=== PATIENT | male | born 1955 | race Caucasian/White ===

== ENCOUNTER 2017-04-30 12:16 | Inpatient (IN) | payer BC ==
[2017-04-30] MEDS ORDERED: ASPIRIN EC 325 MG TAB PO ONE ×2 (12:37→13:24)
[2017-04-30] MEDS ORDERED: NS 1,000 ML IV ONE (12:37)
[2017-04-30] MEDS ORDERED: DIAZEPAM 5 MG TAB PO ONE (12:37)
[2017-04-30] MEDS ORDERED: FAMOTIDINE 20 MG TAB PO ONE (12:37)
[2017-04-30] MEDS ORDERED: diphenhydrAMINE 25 MG CAP PO ONE ×2 (12:37→13:24)
--- NOTE | 2017-04-30 13:09 | CPEKG ---
Heart Rate: 48 RR Interval: 1250 P-R Interval: 248 QRSD Interval: 110 QT Interval: 440 QTC Interval: 394 P Reader: 7 QRS Reader: 43 T Wave Reader: 6 EKG Severity - ABNORMAL ECG - EKG Impression: SINUS BRADYCARDIA EKG Impression: FIRST DEGREE AV BLOCK EKG Impression: NONSPECIFIC INTRAVENTRICULAR CONDUCTION DELAY Electronically Signed By: Cecilio Becerril 30-Apr-2017 15:08:48
[2017-04-30] MEDS ORDERED: FAMOTIDINE 20 MG TAB ONE (13:24)
[2017-04-30] MEDS ORDERED: DIAZEPAM 5 MG TAB ONE (13:24)
[2017-04-30 13:27] LABS: % IMMATURE GRANULYOCYTES 0.3 % (0.0-1.1); ABSOLUTE IMMATURE GRANULOCYTES 0.02 10^3/uL (0.00-0.10); ADD DIFF? NO; ADD MORPH? NO; ADD SCAN? NO; ATYPICAL LYMPHOCYTE FLAG 0 (0-99); FRAGMENT RBC FLAG 0 (0-99); HEMATOCRIT 46.3 % (40.0-51.0); HEMOGLOBIN 15.2 g/dL (13.7-17.5); LEFT SHIFT FLG 0 (0-99); LIPEMIA HEMOLYSIS FLAG 80 (0-99); MEAN CELL HEMOGLOBIN 24.7 pg (27.9-34.1); MEAN CELL HEMOGLOBIN CONCENTR. 32.8 g/dL (32.4-36.7); MEAN CELL VOLUME 75.2 fL (81.5-99.8); MEAN PLATELET VOLUME 9.6 fL (8.7-11.7); PLATELET CLUMPS FLAG 10 (0-99); PLATELET COUNT 225 10^3/uL (150-400); RED BLOOD CELL COUNT 6.16 10^6/uL (4.40-6.38); RED CELL DISTRIBUTION WIDTH 15.4 % (11.5-15.2)
[2017-04-30 13:41] LABS: ANION GAP 11 mEq/L (8-16); CALCIUM 9.7 mg/dL (8.5-10.4); CARBON DIOXIDE 23 mEq/l (22-31); CHLORIDE 106 mEq/L (97-110); CHOLESTEROL 150 mg/dL (140-220); GLOMERULAR FILTRATION RATE > 60; GLUCOSE 88 mg/dL (70-100); HIGH DENSITY LIPOPROTEIN 30 mg/dL (40-65); LDL/HDL RATIO 2.93 RATIO (1.00-3.64); LOW DENSITY LIPOPROTEIN 88 mg/dL (80-100); NON-HIGH DENSITY LIPOPROTEIN 120 mg/dL (90-129); POTASSIUM 4.5 mEq/L (3.5-5.2); SODIUM 140 mEq/L (134-144); TRIGLYCERIDE 161 mg/dL (40-150); VERY LOW DENSITY LIPOPROTEINS 32 mg/dL (8-25)
[2017-04-30 13:45] LABS: INR 1.01 (0.83-1.16); PROTIME(PATIENT) 13.2 SEC (12.0-15.0)
[2017-04-30] MEDS ORDERED: fentaNYL 100 MCG/2 ML INJ ONE (14:49)
[2017-04-30] MEDS ORDERED: LIDOCAINE 1% 300 MG/30 ML SDV ONE (14:49)
[2017-04-30] MEDS ORDERED: VERAPAMIL 5 MG/2 ML VIAL ONE (14:50)
[2017-04-30] MEDS ORDERED: IOPAMIDOL (ISOVUE-370) 150 ML BTL IV ONE (14:50)
[2017-04-30] MEDS ORDERED: MIDAZOLAM 2 MG/2 ML VIAL ONE ×2 (14:50→15:26)
[2017-04-30] MEDS ORDERED: HEPARIN 10,000 UNIT/10 ML MDV ONE (14:50)
[2017-04-30] MEDS ORDERED: ATROPINE SULFATE 1 MG/10 ML SYR IVP PRN (16:08)
[2017-04-30] MEDS ORDERED: NITROGLYCERIN 0.4 MG BTL SL PRN (16:08)
[2017-04-30] MEDS ORDERED: ONDANSETRON 4 MG/2 ML VIAL IVP PRN (16:08)
[2017-04-30] MEDS ORDERED: NS 1,000 ML IV SCH (16:30)
--- NOTE | 2017-04-30 16:41 | PDDXCAT ---
Diagnostic Cath Note - . 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 LAD: Mid-LAD 90%; distal LAD 60-70%. LCX: Codominant circumflex with diffuse 40-50% disease in mid-vessel; 80-90% lesion jeopardizing small, terminal inferior wall branch. RCA: Codominant RCA with 80-90% mid-vessel lesion. Ramus: Moderate to large ramus intermedius with diffuse proximal disease up to 60-70%. LVEF: 60% Wall motion: Normal Complications: None Estimated blood loss: <50ml Assessment: 1) Normal LV systolic function. 2) Multivessel CAD as described above. Plan: In speaking with the patient's following his procedure, it appears that he has been having CCS class IV angina. Given the multivessel and severe nature of his CAD, he will be admitted and CT surgery will be consulted tomorrow morning for consideration of coronary bypass graft surgery. The patient will definitely require greater than 2 midnights for care of his cardiac condition.
[2017-04-30] MEDS ORDERED: LISINOPRIL 5 MG TAB PO SCH (17:45)
[2017-04-30] MEDS ORDERED: LISINOPRIL 5 MG TAB PO ONE (17:45)
[2017-04-30] MEDS: METOPROLOL TARTRATE 25 MG TAB PO SCH (21:26)
[2017-05-01] MEDS: LEVOTHYROXINE 200 MCG TAB PO SCH (06:16)
[2017-05-01] MEDS: ASPIRIN EC 81 MG TAB PO SCH (08:06)
[2017-05-01] MEDS: ALLOPURINOL 300 MG TAB PO SCH (08:06)
[2017-05-01] MEDS: MULTIVITAMINS 1 EACH TAB PO SCH (08:06)
[2017-05-01] MEDS ORDERED: LISINOPRIL 10 MG TAB PO SCH (09:00)
[2017-05-01] MEDS ORDERED: MUPIROCIN 2% 22 GM OINT NS ONE (10:34)
[2017-05-01] MEDS: METOPROLOL TARTRATE 25 MG TAB PO SCH ×2 (10:45→23:43)
[2017-05-01 12:27] LABS: HEMOGLOBIN A1C 6.3 % (4.0-6.0)
--- NOTE | 2017-05-01 12:50 | ECHO ---
[id number] + + [address] : : [place] [address] : : [phone] + + Adult Echocardiographic Report + --+ :Name: Aura HERNÁNDEZluc Date: 05/01/2017 08:05 AM : : Hospital Admission Number: [id number] Location: 2 12: :: 1955 Gender: Male Height: 73 in : :Age: 61 yrs Race: WH Weight: 207 lb : :Reason For Study: Multivessel CAD : : BSA: 2.2 meters2 : + --+ MMode/2D Measurements \T\ Calculations IVSd: 0.96 cm LVIDd: 5.1 cm FS: 38.9 % Ao root diam: LVPWd: 0.87 cm LVIDs: 3.1 cm EDV(Teich): 3.4 cm 126.0 ml LA dimension: ESV(Teich): 4.5 cm 39.1 ml EF(Teich): 69.0 % LVLd ap4: 8.1 cm SV(MOD-sp4): EDV(MOD-sp4): 49.0 ml 80.0 ml LVLs ap4: 7.0 cm ESV(MOD-sp4): 31.0 ml EF(MOD-sp4): 61.3 % Normal Measurement Values: + + :LVIDd (3.5-5.7cm) IVSd (0.6-1.1cm) LVPWd (0.6-1.1cm) Aortic Root (2.0-3.7cm)Left Atrium (1.5-4.0cm): :LV Vol(d) (76-115ml) LV Vol(s) (29-48ml) Ejec Fraction (50-65%)PV Aldo (0.6- 1.2m/s) TV Aldo (0.4-1.0m/s) : :MV E Aldo (0.8-1.0m/s)MV A Aldo (0.3-1.0m/s)LVOT Aldo (0.7-1.2m/s) Asc Ao Aldo ( 0.9-1.8m/s) : + + Doppler Measurements \T\ Calculations MV E max aldo: 87.4 cm/sec Ao V2 max: 112.7 cm/sec TR max aldo: 202.2 cm/sec MV A max aldo: 48.4 cm/sec Ao max P.1 mmHg TR max P.4 mmHg MV E/A: 1.8 RAP systole: 5.0 mmHg RVSP(TR): 21.4 mmHg Left Ventricle The left ventricle is normal in size and function. There is normal left ventricular wall thickness. Left ventricular systolic function is normal. Ejection Fraction = 60-65%. There is Doppler evidence for diastolic dysfunction. No regional wall motion abnormalities noted. Right Ventricle The right ventricle is normal in size and function. Atria The left atrial size is normal. Right atrial size is normal. Mitral Valve The mitral valve is normal in structure and function. There is trace mitral regurgitation. Tricuspid Valve Normal tricuspid valve. There is mild tricuspid regurgitation. Right ventricular systolic pressure is normal. Aortic Valve The aortic valve is trileaflet. The aortic valve opens well. There is no aortic stenosis. There is no aortic insufficiency. Pulmonic Valve The pulmonic valve is not well visualized. There is no pulmonic valvular regurgitation. Great Vessels The aortic root is normal size. Pericardium/Pleural There is no pericardial effusion. Conclusion A complete two-dimensional transthoracic echocardiogram was performed (2D, M-mode, Doppler and color flow Doppler). (1) Left ventricular systolic ejection fraction was normal (60-65%) - normal wall motion (2) No left ventricular hypertrophy (3) Diastolic dysfunction was present (4) Normal right ventricular size and function (5) Normal atrial dimensions (6) Physiologic mitral regurgitation (7) Trileaflet aortic valve without sclerosis or insufficiency (8) Mild tricuspid regurgitation - RVSP was within normal limits (9) Poor visualization of the pulmonic valve (10) No comparison echocardiograms Final Reading Physician: Dhaval Stover signed on 05/01/2017 12:49 PM Ordering Physician: Chet Do Performed By: Raya Hope RDCS
--- NOTE | 2017-05-01 13:44 | PDCARPN ---
Cardiology Progress Note Assessment/Plan: See my recent office note which serves as the history and physical for this Hospital encounter. It has been placed on the physical chart for information purposes. 61-year-old male recently presented for evaluation with classic CCS class III to IV angina. Has risk factors of hypertension (treated) and mild hyperlipidemia (untreated). Recent pharmacologic nuclear stress test suggested LAD territory ischemia. Cardiac catheterization performed yesterday demonstrated preserved LV systolic function and multivessel CAD. Patient was presented at our weekly cardiology case conference this morning. Recommendation is for coronary bypass surgery. Patient and family met with Dr. Jorge earlier today. Surgery is planned for tomorrow. Echocardiogram demonstrates normal left ventricular systolic function and no valvular heart disease. Carotid ultrasound negative for any significant atherosclerotic plaque. Will need aggressive secondary prevention going forward. Will start low-dose atorvastatin. 05/01/17 13:40 Subjective: No complaints. Reviewed/Discussed With: family Objective: Vital Signs (8 Hrs) Temp Pulse Resp BP Pulse Ox 05/01/17 11:53 36.9 C 54 L 12 152/84 H 95 05/01/17 10:45 48 L 05/01/17 07:21 36.8 C 48 L 17 158/88 H 95 Intake/Output (24 Hrs) 04/30/17 05/01/17 05/02/17 05:59 05:59 05:59 Intake Total 1320 1000 Output Total 800 Balance 520 1000 Intake: Oral (ml) 720 IV Intake (ml) 600 1000 Output: Urine (ml) 800 Urinal 800 Other: Weight 94.3 kg Result Diagrams: 04/30/17 13:00 04/30/17 13:00 - Physical Exam Constitutional: WDWN, healthy appearing, no apparent distress Eyes: anicteric sclera Ears, Nose, Mouth, Throat: moist mucous membranes Cardiovascular: regular rate and rhythm, no murmurs, no rubs, no gallops Respiratory: clear to auscultate bilat Gastrointestinal: normoactive bowel sounds, no tenderness, no masses Skin: no rashes, no edema Neurologic: AAOx3 Psychiatric: not anxious ICD10 Worksheet Patient Problems: Problems Problem Status Onset Coronary artery disease Acute Hyperlipidemia Acute Hypertension Acute - ICD10 Problem Qualifiers (1) Coronary artery disease Qualifiers: Coronary Disease-Associated Artery/Lesion type: C [place] vs. transplanted heart: N Associated angina: A (2) Hypertension Qualifiers: Hypertension type: H (3) Hyperlipidemia Qualifiers: Hyperlipidemia type: H
--- NOTE | 2017-05-01 16:13 | PDGENHP ---
<Mikael Santos - Last Filed: 05/01/17 16:32> History and Physical - Chief Complaint abnormal stress test, unstable angina, CAD - History of Present Illness 61M with positive stress test and unstable angina s/p C which revealed severe three-vessel disease. Case discussed at cardiology conference this morning with ultimate plan for surgical revascularization on 05/02/[address] Jorge. The patient currently denies chest pain or SOB. History Information - Allergies/Home Medication List Allergies/Adverse Reactions: No Known Allergies Allergy (Unverified 04/30/17 12:37) Home Medications: Allopurinol [Allopurinol 300 MG (RX)] 300 mg PO DAILY 04/30/17 [Last Taken 04/30] Aspirin [Aspirin EC] 81 mg PO DAILY 04/30/17 [Last Taken 04/30/17] Herbals/Supplements -Info Only 1 ea PO DAILY 04/30/17 [Last Taken Unknown] Levothyroxine [Synthroid 200 mcg (*)] 200 mcg PO DAILY06 04/30/17 [Last Taken ] Lisinopril [Zestril 10 mg (*)] 10 mg PO DAILY 04/30/17 [Last Taken 04/30/17] Multivitamins [Multivitamin (*)] 1 each PO DAILY 04/30/17 [Last Taken 04/30/17] Nadolol [Corgard] 80 mg PO DAILY 04/30/17 [Last Taken 04/30/17] I have personally reviewed and updated: family history, medical history, surgical history - Past Medical History diabetes type 2 (pre-diabetic), hypertension, hyperlipidemia Additional medical history: gout, hypothyroidism - Surgical History Reports: no pertinent surgical hx - Family History Positive for: non-pertinent - Social History Smoking Status: Never smoked Review of Systems Constitutional: Reports: no symptoms EENMT: Reports: no symptoms Cardiac: Reports: no symptoms Respiratory: Reports: no symptoms Gastrointestinal: Reports: no symptoms Genitourinary: Reports: no symptoms Neurological: Reports: no symptoms Physical Exam Temp Pulse Resp BP Pulse Ox 36.9 C 54 L 12 152/84 H 95 05/01/17 11:53 05/01/17 11:53 05/01/17 11:53 05/01/17 11:53 05/01/17 11:53 Constitutional: no apparent distress, appears nourished, not in pain Eyes: anicteric sclera Ears, Nose, Mouth, Throat: hearing normal Cardiovascular: no murmur, rub, or gallop, bradycardia, No irregularly irregular , No JVD Respiratory: no respiratory distress, clear to auscultation Gastrointestinal: soft, non-tender abdomen Skin: warm, normal color Musculoskeletal: full muscle strength Neurologic: AAOx3, sensation intact bilaterally Psychiatric: interacting appropriately, not anxious, not encephalopathic, thought process linear Lab Data & Imaging Review 04/30/17 13:00 04/30/17 13:00 WBC 7.42 10^3/uL (3.80-9.50) 04/30/17 13:00 RBC 6.16 10^6/uL (4.40-6.38) 04/30/17 13:00 Hgb 15.2 g/dL (13.7-17.5) 04/30/17 13:00 Hct 46.3 % (40.0-51.0) 04/30/17 13:00 MCV 75.2 fL (81.5-99.8) L 04/30/17 13:00 MCH 24.7 pg (27.9-34.1) L 04/30/17 13:00 MCHC 32.8 g/dL (32.4-36.7) 04/30/17 13:00 RDW 15.4 % (11.5-15.2) H 04/30/17 13:00 Plt Count 225 10^3/uL (150-400) 04/30/17 13:00 MPV 9.6 fL (8.7-11.7) 04/30/17 13:00 Neut % (Auto) 43.5 % (39.3-74.2) 04/30/17 13:00 Lymph % (Auto) 34.2 % (15.0-45.0) 04/30/17 13:00 [place] % (Auto) 10.4 % (4.5-13.0) 04/30/17 13:00 Eos % (Auto) 9.7 % (0.6-7.6) H 04/30/17 13:00 Baso % (Auto) 1.9 % (0.3-1.7) H 04/30/17 13:00 Nucleat RBC Rel Count 0.0 % (0.0-0.2) 04/30/17 13:00 Absolute Neuts (auto) 3.23 10^3/uL (1.70-6.50) 04/30/17 13:00 Absolute Lymphs (auto) 2.54 10^3/uL (1.00-3.00) 04/30/17 13:00 Absolute Monos (auto) 0.77 10^3/uL (0.30-0.80) 04/30/17 13:00 Absolute Eos (auto) 0.72 10^3/uL (0.03-0.40) H 04/30/17 13:00 Absolute Basos (auto) 0.14 10^3/uL (0.02-0.10) H 04/30/17 13:00 Absolute Nucleated RBC 0.00 10^3/uL (0-0.01) 04/30/17 13:00 Immature Gran % 0.3 % (0.0-1.1) 04/30/17 13:00 Immature Gran # 0.02 10^3/uL (0.00-0.10) 04/30/17 13:00 PT 13.2 SEC (12.0-15.0) 04/30/17 13:00 INR 1.01 (0.83-1.16) 04/30/17 13:00 Sodium 140 mEq/L (134-144) 04/30/17 13:00 Potassium 4.5 mEq/L (3.5-5.2) 04/30/17 13:00 Chloride 106 mEq/L (97-110) 04/30/17 13:00 Carbon Dioxide 23 mEq/l (22-31) 04/30/17 13:00 Anion Gap 11 mEq/L (8-16) 04/30/17 13:00 BUN 19 mg/dL (7-23) 04/30/17 13:00 Creatinine 1.0 mg/dL (0.7-1.3) 04/30/17 13:00 Estimated GFR > 60 04/30/17 13:00 Glucose 88 mg/dL (70-100) 04/30/17 13:00 Hemoglobin A1c 6.3 % (4.0-6.0) H 05/01/17 11:38 Estim Average Glucose 134 mg/dL (68-126) H 05/01/17 11:38 Calcium 9.7 mg/dL (8.5-10.4) 04/30/17 13:00 Magnesium 2.0 mg/dL (1.6-2.3) 04/30/17 13:00 Triglycerides 161 mg/dL (40-150) H 04/30/17 13:00 Cholesterol 150 mg/dL (140-220) 04/30/17 13:00 Cholesterol Risk Factr 1.0 (0.2-1.0) 04/30/17 13:00 LDL Cholesterol, Calc 88 mg/dL (80-100) 04/30/17 13:00 LDL Risk Factor 1.0 (0.2-1.0) 04/30/17 13:00 VLDL Cholesterol 32 mg/dL (8-25) H 04/30/17 13:00 Non-HDL Cholesterol 120 mg/dL (90-129) 04/30/17 13:00 HDL Cholesterol 30 mg/dL (40-65) L 04/30/17 13:00 LDL/HDL Ratio 2.93 RATIO (1.00-3.64) 04/30/17 13:00 Cholesterol/HDL Ratio 5.00 RATIO (1.00-4.97) H 04/30/17 13:00 Patient ABO/Rh O POSITIVE 05/01/17 11:38 Antibody Screen NEGATIVE 05/01/17 11:38 Visualized and Interpreted Chest x-ray results: Yes Chest X-Ray results: normal Visualized and Interpreted imaging results: Yes Interpretation: Carotid U/S: no significant stenosis Visualized and Interpreted EKG results: Yes EKG additional interpertation: Sinus bradycardia, 1st degree AV block Assessment & Plan Assessment: Severe 3-vessel CAD Plan: CABG 05/02/17 at 7:[address] Jorge. Consents to be obtained in morning. Pre- op orders entered. <Mele Jorge O - Last Filed: 05/02/17 11:41> Physical Exam Temp Pulse Resp BP Pulse Ox 36.6 C 53 L 16 155/80 H 95 05/02/17 04:00 05/02/17 04:00 05/02/17 04:00 05/02/17 04:00 05/02/17 04:00 Lab Data & Imaging Review 04/30/17 13:00 04/30/17 13:00 WBC 7.42 10^3/uL (3.80-9.50) 04/30/17 13:00 RBC 6.16 10^6/uL (4.40-6.38) 04/30/17 13:00 Hgb 15.2 g/dL (13.7-17.5) 04/30/17 13:00 Hct 46.3 % (40.0-51.0) 04/30/17 13:00 MCV 75.2 fL (81.5-99.8) L 04/30/17 13:00 MCH 24.7 pg (27.9-34.1) L 04/30/17 13:00 MCHC 32.8 g/dL (32.4-36.7) 04/30/17 13:00 RDW 15.4 % (11.5-15.2) H 04/30/17 13:00 Plt Count 225 10^3/uL (150-400) 04/30/17 13:00 MPV 9.6 fL (8.7-11.7) 04/30/17 13:00 Neut % (Auto) 43.5 % (39.3-74.2) 04/30/17 13:00 Lymph % (Auto) 34.2 % (15.0-45.0) 04/30/17 13:00 [place] % (Auto) 10.4 % (4.5-13.0) 04/30/17 13:00 Eos % (Auto) 9.7 % (0.6-7.6) H 04/30/17 13:00 Baso % (Auto) 1.9 % (0.3-1.7) H 04/30/17 13:00 Nucleat RBC Rel Count 0.0 % (0.0-0.2) 04/30/17 13:00 Absolute Neuts (auto) 3.23 10^3/uL (1.70-6.50) 04/30/17 13:00 Absolute Lymphs (auto) 2.54 10^3/uL (1.00-3.00) 04/30/17 13:00 Absolute Monos (auto) 0.77 10^3/uL (0.30-0.80) 04/30/17 13:00 Absolute Eos (auto) 0.72 10^3/uL (0.03-0.40) H 04/30/17 13:00 Absolute Basos (auto) 0.14 10^3/uL (0.02-0.10) H 04/30/17 13:00 Absolute Nucleated RBC 0.00 10^3/uL (0-0.01) 04/30/17 13:00 Immature Gran % 0.3 % (0.0-1.1) 04/30/17 13:00 Immature Gran # 0.02 10^3/uL (0.00-0.10) 04/30/17 13:00 PT 13.2 SEC (12.0-15.0) 04/30/17 13:00 INR 1.01 (0.83-1.16) 04/30/17 13:00 Sodium 140 mEq/L (134-144) 04/30/17 13:00 Potassium 4.5 mEq/L (3.5-5.2) 04/30/17 13:00 Chloride 106 mEq/L (97-110) 04/30/17 13:00 Carbon Dioxide 23 mEq/l (22-31) 04/30/17 13:00 Anion Gap 11 mEq/L (8-16) 04/30/17 13:00 BUN 19 mg/dL (7-23) 04/30/17 13:00 Creatinine 1.0 mg/dL (0.7-1.3) 04/30/17 13:00 Estimated GFR > 60 04/30/17 13:00 Glucose 88 mg/dL (70-100) 04/30/17 13:00 Hemoglobin A1c 6.3 % (4.0-6.0) H 05/01/17 11:38 Estim Average Glucose 134 mg/dL (68-126) H 05/01/17 11:38 Calcium 9.7 mg/dL (8.5-10.4) 04/30/17 13:00 Magnesium 2.0 mg/dL (1.6-2.3) 04/30/17 13:00 Triglycerides 161 mg/dL (40-150) H 04/30/17 13:00 Cholesterol 150 mg/dL (140-220) 04/30/17 13:00 Cholesterol Risk Factr 1.0 (0.2-1.0) 04/30/17 13:00 LDL Cholesterol, Calc 88 mg/dL (80-100) 04/30/17 13:00 LDL Risk Factor 1.0 (0.2-1.0) 04/30/17 13:00 VLDL Cholesterol 32 mg/dL (8-25) H 04/30/17 13:00 Non-HDL Cholesterol 120 mg/dL (90-129) 04/30/17 13:00 HDL Cholesterol 30 mg/dL (40-65) L 04/30/17 13:00 LDL/HDL Ratio 2.93 RATIO (1.00-3.64) 04/30/17 13:00 Cholesterol/HDL Ratio 5.00 RATIO (1.00-4.97) H 04/30/17 13:00 Patient ABO/Rh O POSITIVE 05/01/17 11:38 Antibody Screen NEGATIVE 05/01/17 11:38 Assessment & Plan Assessment: Coronary artery disease (Acute) Hyperlipidemia (Acute) Hypertension (Acute) CTS Seen with estephania and Rafael Santos 05/01 am and again with Anirudh Shaikh 05/02 am. d/w Dr Do at [facility] 05/01. Class IV angina with severe 3vd on cath. Plan CABG this admit. Options risks course outcomes indications approaches reviewed in detailx2.
[2017-05-01] MEDS ORDERED: CHLORHEXIDINE GLUC HIBICLENS 118 ML BTL TP SCH (21:00)
[2017-05-01] MEDS: MUPIROCIN 2% 22 GM OINT NS SCH (23:44)
[2017-05-02] MEDS ORDERED: PHENYLEPHRINE HCL 50 MG in NS 250 ML IV ONE (06:00)
[2017-05-02] MEDS ORDERED: NOREPINEPHRINE BITARTRATE 16 MG in NS 250 ML IV ONE (06:00)
[2017-05-02] MEDS ORDERED: INSULIN REGULAR HUMAN 100 UNIT in NS 100 ML IV ONE (06:00)
[2017-05-02] MEDS ORDERED: CITRATE DEXTROSE SOLN 500 ML BAG MISC ONE (06:00)
[2017-05-02] MEDS ORDERED: MANNITOL 25% 12.5 GM/50 ML VIAL IV ONE (06:00)
[2017-05-02] MEDS ORDERED: SODIUM BICARBONATE 20 MEQ, LIDOCAINE 1% 10 ML in NORMOSOL-R 1,000 ML MISC ONE (06:00)
[2017-05-02] MEDS ORDERED: ceFAZolin 2 GM/DEXTROSE 100 ML IV ONE (06:00)
[2017-05-02] MEDS ORDERED: niCARdipine/NACL 200 ML IV SCH (06:00)
[2017-05-02] MEDS ORDERED: VERAPAMIL 5 MG, NITROGLYCERIN 2.5 MG, HEPARIN 500 UNIT, SODIUM BICARBONATE 0.2 MEQ in L... MISC ONE (06:00)
[2017-05-02] MEDS ORDERED: PAPAVERINE HCL 60 MG in NS 100 ML IV ONE (06:00)
[2017-05-02] MEDS ORDERED: AMINOCAPROIC ACID 5 GM/20 ML VIAL IV ONE (06:00)
[2017-05-02] MEDS ORDERED: PROTAMINE SULFATE 50 MG/5 ML VIAL IVP ONE (06:32)
[2017-05-02] MEDS ORDERED: ALBUMIN 5% 250 ML BOTTLE IV ONE ×2 (06:33→11:02)
[2017-05-02] MEDS ORDERED: CALCIUM CHLORIDE 1 GM/10 ML INJ ONE ×2 (06:33→07:25)
[2017-05-02] MEDS ORDERED: MILRINONE/DEXTROSE/100 ML BAG IV ONE (06:33)
[2017-05-02] MEDS ORDERED: AMINOCAPROIC ACID 5 GM/20 ML VIAL ONE (06:34)
[2017-05-02] MEDS ORDERED: POTASSIUM Cl (KCl) 20 MEQ/50 ML BAG IV ONE (06:34)
[2017-05-02] MEDS ORDERED: AMIODARONE HCL 150 MG/3 ML VIAL ONE (06:34)
[2017-05-02] MEDS ORDERED: DOPamine/DEXTROSE/250 ML BAG IV ONE (06:34)
[2017-05-02] MEDS ORDERED: niCARdipine/NACL/200 ML BAG IV ONE (06:34)
[2017-05-02] MEDS ORDERED: CITRATE DEXTROSE SOLN 500 ML BAG ONE (06:34)
[2017-05-02] MEDS ORDERED: NA BICARBONATE 50 MEQ/50 ML VIAL ONE (06:34)
[2017-05-02] MEDS ORDERED: LIDOCAINE 2% 100 MG/5 ML SYR ONE ×2 (06:34→07:25)
[2017-05-02] MEDS ORDERED: methylPREDNISolone SOD SUCC 1 GM/8 ML VIAL ONE (06:35)
[2017-05-02] MEDS ORDERED: MAGNESIUM SULFATE 1 GM/2 ML VIAL ONE (06:35)
[2017-05-02] MEDS ORDERED: HEPARIN 10,000 UNIT/10 ML MDV ONE (06:35)
[2017-05-02] MEDS ORDERED: ADENOSINE 6 MG/2 ML VIAL ONE (06:35)
[2017-05-02] MEDS ORDERED: ceFAZolin 1 GM VIAL ONE (06:36)
[2017-05-02] MEDS ORDERED: ENALAPRILAT DIHYDRATE 1.25 MG/ML VIAL IVP PRN (07:00)
[2017-05-02] MEDS ORDERED: VANCOMYCIN 1 GM VIAL ONE (07:08)
[2017-05-02] MEDS ORDERED: PAPAVERINE HCL 60 MG/2 ML SDV ONE (07:10)
[2017-05-02] MEDS ORDERED: MIDAZOLAM 2 MG/2 ML VIAL ONE ×3 (07:15→07:24)
[2017-05-02] MEDS ORDERED: fentaNYL 100 MCG/2 ML INJ ONE ×4 (07:24→10:17)
[2017-05-02] MEDS ORDERED: REMIFENTANIL HCL 1 MG VIAL ONE (07:24)
[2017-05-02] MEDS ORDERED: ROCURONIUM 100 MG/10 ML VIAL ONE (07:25)
[2017-05-02] MEDS ORDERED: DEXAMETHASONE 4 MG/ML VIAL ONE (07:25)
[2017-05-02] MEDS ORDERED: ROCURONIUM 50 MG/5 ML VIAL ONE (07:25)
[2017-05-02] MEDS ORDERED: epHEDrine SULFATE 10 MG/ML SYR ONE ×2 (07:25→08:15)
[2017-05-02] MEDS ORDERED: PHENYLEPHRINE HCL 100 MCG/ML SYR ONE (07:25)
[2017-05-02] MEDS ORDERED: PROPOFOL/EMULSION 500 MG/50 ML BOTTLE IV ONE (07:25)
[2017-05-02] MEDS ORDERED: LIDOCAINE HCL 160 MG/4 ML LTA KIT TP ONE (07:28)
[2017-05-02] MEDS ORDERED: NITROGLYCERIN/DEXTROSE 250 ML IV SCH ×2 (07:30→12:00)
[2017-05-02] MEDS ORDERED: SURGIFLO MATRIX KIT WITH THROMBIN TP ONE (08:30)
[2017-05-02] MEDS ORDERED: ONDANSETRON 4 MG/2 ML VIAL ONE (08:58)
[2017-05-02] MEDS ORDERED: ATORVASTATIN CALCIUM 20 MG TAB PO SCH (09:00)
[2017-05-02] MEDS ORDERED: PROPOFOL 200 MG/20 ML VIAL ONE (10:17)
[2017-05-02] MEDS ORDERED: NITROGLYCERIN/D5W 50 MG/250 ML BOTTLE IV ONE (10:22)
[2017-05-02] MEDS ORDERED: RANITIDINE 50 MG/2 ML VIAL ONE (10:41)
[2017-05-02] MEDS ORDERED: HYDROCORTISONE 100 MG/2 ML VIAL ONE (10:48)
[2017-05-02] MEDS ORDERED: MAGNESIUM SULF 2 GM/WATER 50 ML BAG IV ONE (11:02)
[2017-05-02] MEDS: LEVOTHYROXINE 200 MCG TAB PO SCH (11:30)
[2017-05-02] MEDS: MUPIROCIN 2% 22 GM OINT NS SCH ×2 (11:33→20:24)
[2017-05-02] MEDS: MULTIVITAMINS 1 EACH TAB PO SCH (11:33)
[2017-05-02] MEDS ORDERED: MEPERIDINE 25 MG/ML SYR IVP PRN (11:48)
[2017-05-02] MEDS ORDERED: POTASSIUM Cl (KCl) 50 ML IV PRN (11:48)
[2017-05-02] MEDS ORDERED: BISACODYL 10 MG SUPP PR PRN (11:48)
[2017-05-02] MEDS ORDERED: SODIUM CL NASAL 45 ML BTL EACHNARE PRN (11:48)
[2017-05-02] MEDS ORDERED: MAGNESIUM SULF 2 GM/WATER 50 ML IV ONE (11:48)
[2017-05-02] MEDS ORDERED: D50W 25 GM/50 ML SYR IVP PRN (11:48)
[2017-05-02] MEDS ORDERED: ACETAMINOPHEN 650 MG SUPP PR PRN (11:48)
[2017-05-02] MEDS ORDERED: MAGNESIUM HYDROXIDE 30 ML UDCUP PO PRN (11:48)
[2017-05-02] MEDS ORDERED: PANTOPRAZOLE SODIUM 40 MG in NS 100 ML IV ONE (11:48)
[2017-05-02] MEDS ORDERED: ONDANSETRON DISINTEGRATING 4 MG TAB PO PRN (11:48)
[2017-05-02] MEDS ORDERED: ALBUMIN 5% 250 ML IV PRN (11:48)
[2017-05-02] MEDS ORDERED: CEPACOL LOZENGE PO PRN (11:48)
[2017-05-02] MEDS ORDERED: POLYETHYLENE GLYCOL 3350 17 GM PKT PO PRN (11:48)
[2017-05-02] MEDS ORDERED: METOCLOPRAMIDE 10 MG/2 ML VIAL IVP PRN (11:48)
[2017-05-02] MEDS ORDERED: LACTULOSE 20 GM/30 ML UDCUP PO PRN (11:48)
[2017-05-02] MEDS ORDERED: NS 1,000 ML IV SCH (12:00)
[2017-05-02 12:34] LABS: CALCULATED OXYGEN SATURATION 95 % (92-95)
--- NOTE | 2017-05-02 12:59 | CPEKG ---
Heart Rate: 66 RR Interval: 909 P-R Interval: 208 QRSD Interval: 106 QT Interval: 444 QTC Interval: 466 P [place]: 62 QRS [place]: 61 T Wave [place]: 26 EKG Severity - OTHERWISE NORMAL ECG - EKG Impression: SINUS RHYTHM EKG Impression: LOW VOLTAGE IN FRONTAL LEADS Electronically Signed By: Cecilio Becerril 02-May-2017 16:40:47
[2017-05-02] MEDS: ceFAZolin 2 GM/DEXTROSE 100 ML IV SCH ×2 (13:18→21:09)
[2017-05-02] MEDS: INSULIN REGULAR HUMAN 100 UNIT in NS 100 ML IV SCH ×2 (14:00→18:06)
[2017-05-02 15:35] LABS: BASE EXCESS -6.3 mEq/L (-2.5-2.5); BICARBONATE 20 mEq/L (22-26); MEASURED OXYGEN SATURATION 96 % (92-95); TCO2 21 mEq/L (23-27)
[2017-05-02 15:37] LABS: PCO2 41 mmHg (34-38); PO2 95 mmHg (65-75)
[2017-05-02 15:38] LABS: CPAP YES; END TIDAL CO2 29; O2 CONCENTRATIION 40 % (0-100); P/F RATIO 238 RATIO; PATIENT RATE 31
[2017-05-02 15:39] LABS: PRESSURE SUPPORT 7
[2017-05-02] MEDS ORDERED: CLOPIDOGREL BISULFATE 75 MG TAB PO ONE (16:00)
[2017-05-02] MEDS ORDERED: ASPIRIN EC 81 MG TAB PO ONE (16:00)
--- NOTE | 2017-05-02 17:20 | GCON ---
[f rep st] CONSULTATION PULMONARY CRITICAL CARE CONSULTATION DATE OF CONSULTATION: 05/02/2017 REASON FOR CONSULTATION: Intensive care unit evaluation and medical management following open heart surgery. HISTORY: The patient is a 61-year-old gentleman with a history of coronary artery disease. He pres ented with unstable angina. Catheterization revealed severe 3-vessel disease. He was seen yesterda y by Cardiovascular Surgery and taken to the OR today. By report, he had a 4 vessel coronary artery bypass grafting done without complications. He was returned to the intensive care unit on the vent ilator and has been weaning per protocol. He has not required blood or blood products. He did rece fariba his own blood via CellSaver. Vital signs postoperatively are stable. He is not requiring press ors. He is on low-dose nitroglycerin by drip to prevent vasospasm. He is on insulin drip per martina col. PAST MEDICAL HISTORY: Remarkable for systemic hypertension, hyperlipidemia, hypothyroidism on repla cement, gout, and early type 2 diabetes not requiring medications. OUTPATIENT MEDICATIONS: Included lisinopril, Synthroid, aspirin, Corgard, and allopurinol. PAST SURGICAL HISTORY: Negative. SOCIAL HISTORY: The patient is with a supportive family. He is a never smoker. Significan t alcohol is negative. FAMILY HISTORY: Unobtainable at this time. REVIEW OF SYSTEMS: Unobtainable, negative by report per chart review. PHYSICAL EXAMINATION: GENERAL: Reveals a gentleman who is sedated postoperatively on the ventilato r starting to wake up. VITAL SIGNS: Blood pressure is approximately 120/60, heart rate 70 with sin us rhythm on the monitor. There appears to be a first-degree heart block. Respiratory rate is 14 o n the ventilator. He is on 40% FiO2. CVP is 9. HEENT: Remarkable for the endotracheal tube. Pup ils appear equal. CHEST: Postoperative. Breath sounds are present bilaterally, decreased at the b ases. No significant rales or rhonchi are appreciated. There is no obvious bleeding. Mediastinal tubes are in place with bloody drainage. CellSaver has been given. ABDOMEN: Soft. Bowel sounds a re diminished postoperatively. A Haas catheter is in place with good urine output. NEUROLOGIC: E xamination is difficult to assess. He moves all extremities. LABORATORY: Postop hematocrit is 43. White blood cell count preoperatively was 7.4, with a hematoc rit of 46. Platelets were normal. PT was normal. Arterial blood gas on CPAP shows a pH of 7.30, p CO2 of 41, pO2 of 95 on 40%. Basic metabolic panel is within normal limits. Glucoses have ranged b etween approximately 140 and 240. Hemoglobin A1c is 6.3. ASSESSMENT: 1. Acute postoperative respiratory insufficiency. The patient is being weaned. Initially pCO2 was high, and increased respiratory rate was required. He is waking up. He is now maintaining appropr iate oxygenation on 40% and ventilation. PCO2 is slightly high with a slightly low pH but acceptabl e for extubation at this point. Chest x-ray shows left lower lobe atelectasis./retrocardiac density , not unexpected for a postop CABG. This will be followed. 2. Coronary artery disease, status post coronary artery bypass grafting. Hemodynamics and hematocr it are stable. 3. History of early prediabetes. Glucoses are elevated postoperatively. He is on an insulin drip per protocol. 4. History of other medical problems as noted in the HPI including systemic hypertension, hyperlipi demia, gout. PLAN AND RECOMMENDATIONS: The patient will be extubated. Respiratory status will be followed post extubation. Current intravenous medications will be continued including insulin by drip, IV nitrogl ycerin, etc. Tomorrow, when taking orals without problems, his usual home medications as well as or al postoperative medications will be given. Laboratory and chest x-ray will be followed. Further plans and recommendations will be made based on his progress over the next 12-24 hours. /[id number]/MODL
[2017-05-02] MEDS: fentaNYL 100 MCG/2 ML INJ IVP PRN ×2 (18:34→22:32)
[2017-05-02] MEDS: HYDROCODONE/APAP 5/325 TAB PO PRN (20:20)
[2017-05-02] MEDS: CHLORHEXIDINE GLUCONATE 15 ML UDL PO SCH (20:25)
[2017-05-02] MEDS ORDERED: FAMOTIDINE 20 MG/NACL 50 ML IV SCH (21:00)
[2017-05-02 21:54] LABS: HEMATOCRIT 41.7 % (40.0-51.0); HEMOGLOBIN 13.3 g/dL (13.7-17.5); MEAN CELL HEMOGLOBIN 24.8 pg (27.9-34.1); MEAN CELL HEMOGLOBIN CONCENTR. 31.9 g/dL (32.4-36.7); MEAN CELL VOLUME 77.8 fL (81.5-99.8); RED BLOOD CELL COUNT 5.36 10^6/uL (4.40-6.38); RED CELL DISTRIBUTION WIDTH 15.4 % (11.5-15.2)
[2017-05-03] MEDS: HYDROCODONE/APAP 5/325 TAB PO PRN ×2 (02:27→06:21)
[2017-05-03] MEDS: ceFAZolin 2 GM/DEXTROSE 100 ML IV SCH ×3 (05:14→21:20)
[2017-05-03 05:56] LABS: % IMMATURE GRANULYOCYTES 0.5 % (0.0-1.1); ABSOLUTE IMMATURE GRANULOCYTES 0.08 10^3/uL (0.00-0.10); ADD DIFF? NO; ADD MORPH? NO; ADD SCAN? NO; ATYPICAL LYMPHOCYTE FLAG 10 (0-99); FRAGMENT RBC FLAG 0 (0-99); HEMATOCRIT 40.3 % (40.0-51.0); HEMOGLOBIN 12.8 g/dL (13.7-17.5); LEFT SHIFT FLG 20 (0-99); LIPEMIA HEMOLYSIS FLAG 80 (0-99); MEAN CELL HEMOGLOBIN 24.7 pg (27.9-34.1); MEAN CELL HEMOGLOBIN CONCENTR. 31.8 g/dL (32.4-36.7); MEAN CELL VOLUME 77.6 fL (81.5-99.8); PLATELET CLUMPS FLAG 0 (0-99); PLATELET COUNT 203 10^3/uL (150-400); RED BLOOD CELL COUNT 5.19 10^6/uL (4.40-6.38); RED CELL DISTRIBUTION WIDTH 15.6 % (11.5-15.2)
[2017-05-03 06:15] LABS: ANION GAP 6 mEq/L (8-16); CALCIUM 8.1 mg/dL (8.5-10.4); CARBON DIOXIDE 21 mEq/l (22-31); CHLORIDE 109 mEq/L (97-110); CREATININE 0.9 mg/dL (0.7-1.3); GLOMERULAR FILTRATION RATE > 60; GLUCOSE 129 mg/dL (70-100); POTASSIUM 4.5 mEq/L (3.5-5.2); SODIUM 136 mEq/L (134-144)
[2017-05-03] MEDS ORDERED: D10W 250 ML PRN HYPOGLYCEMIA IV (08:30)
--- NOTE | 2017-05-03 08:35 | SOAPPROG ---
SOAP Progress Note Assessment/Plan: Assessment: POD#1 CABG x 4 (MAJOR-LAD, DANIA-PDA, SV sequentially RI-trifurcating OM) Sx severe CAD w preserved LV systolic fx - s/p CABG w bilateral mammaries. Stable early postop course. No vasoactive support, backup pacing, tachycardia, or significant volume overload. Secondary prevention with baby ASA, BB as allowed by BP and statin when eating well. Antispasm prophylaxis of mammary arteries with NTG gtt, transitioning to CCB. Adjunctive antiplatelet prophylaxis with Plavix x 3 mo. Acute expected blood loss anemia - Stable. No blood products transfused. No evidence active bleeding. VTE prophylaxis with DAPT. Prediabetes - Preop A1c of 6.3%. Postop hyperglycemia managed with low dose insulin gtt. Transition to SSI as per protocol. Doubt prolonged correctional needs. ANYA on CPAP - Stable. Home device in use. Plan: Routine POD#1 orders re lines, drains, orals, and mobility. Transition IV NTG to Norvasc 2.5 mg daily. Cont daily DAPT. Tx to PCU. 05/03/17 08:33 Subjective: Grateful for care received. Tolerating OOB well. No nausea on clears. Satisfactory analgesia. IS > 1000. Objective: Vital Signs Temp Pulse Resp BP Pulse Ox 37.4 C 74 23 H 103/61 95 05/03/17 06:56 05/03/17 06:56 05/03/17 06:56 05/03/17 06:56 05/03/17 06:56 Laboratory Results 05/03/17 05:45 05/03/17 05:45 05/02/17 05/03/17 05/04/17 05:59 05:59 05:59 Intake Total 2120 1889 Output Total 400 2345 Balance 1720 -456 PT 13.2 SEC (12.0-15.0) 04/30/17 13:00 INR 1.01 (0.83-1.16) 04/30/17 13:00 Extubated yest afternoon without incident. Stable HR, rhythm and BP. No sig CTOP. Autodiuresing well. CXR-> No PTX, no pulm vasc congestion, mild bibasilar atelectasis, no undrained effusions. Labs ok. Physical Exam - Physical Exam General Appearance: alert, no apparent distress Respiratory: lungs clear (grossly), other (blakes x 3 y-d to pleurovac, serosang drainage, + tidal, no air leak) Cardiac/Chest: regular rate, rhythm, other (Sternum grossly stable. Dressing CDI. Vwires intact) Abdomen: normal bowel sounds, non-tender, soft Skin: warm/dry Extremities: swelling (trace), other (LLE venot dressing CDI. Venot tract bruised but soft) ICD10 Worksheet Patient Problems: Problems Problem Status Onset Acute blood loss anemia Acute Coronary artery disease Acute Hyperlipidemia Acute Hypertension Acute S/P CABG x 4 Acute ~05/02/17
[2017-05-03] MEDS ORDERED: INSULIN GLARGINE 100 UNITS/ML SYRINGE SC ONE (09:00)
[2017-05-03] MEDS ORDERED: D50W 25 GM/50 ML SYR IVP PRN (09:04)
[2017-05-03] MEDS: CHLORHEXIDINE GLUCONATE 15 ML UDL PO SCH ×2 (09:16→21:26)
[2017-05-03] MEDS: MUPIROCIN 2% 22 GM OINT NS SCH ×2 (09:17→21:24)
[2017-05-03] MEDS: CLOPIDOGREL BISULFATE 75 MG TAB PO SCH (09:24)
[2017-05-03] MEDS: ASPIRIN EC 81 MG TAB PO SCH (09:25)
[2017-05-03] MEDS: MULTIVITAMINS 1 EACH TAB PO SCH (09:25)
[2017-05-03] MEDS: PANTOPRAZOLE SODIUM 40 MG TAB PO SCH (09:26)
[2017-05-03] MEDS: traMADol 50 MG TAB PO PRN ×2 (09:44→18:09)
[2017-05-03] MEDS: OXYCODONE/APAP 5/325 TAB PO PRN ×3 (10:37→19:41)
[2017-05-03] MEDS ORDERED: FUROSEMIDE 20 MG/2 ML VIAL IVP ONE (13:00)
[2017-05-03] MEDS: INSULIN LISPRO 100 UNIT/ML SC SCH ×2 (13:01→17:37)
[2017-05-03 15:07] LABS: POTASSIUM 3.6 mEq/L (3.5-5.2)
--- NOTE | 2017-05-03 17:53 | POSTOPPROG ---
Post Op Note Date of Operation: 05/02/17 Surgeon: Mele Jorge Pre-op Diagnosis: CAD Post-op Diagnosis: same Procedure: CABGx4, MAJOR-LAD, DANIA-distal RCA(AM), [id number](Cx), EAU, EVH Inf/Abcess present in the surg proc area at time of surgery?: No Depth: Organ Space EBL: 500-1000 Complications: none Drains: Constavac (x3)
--- NOTE | 2017-05-03 17:56 | SOAPPROG ---
SOAP Progress Note Assessment/Plan: Assessment: Plan: 05/03/17 17:53 CTS pod1 CABG seen with family, d/w A Shaikh Extubated early transferred to tele earlier today ambulating well pain well controlled afeb vss cor rrr no wheeze normal wob well perfused jvp wnl ctubes removed earlier labs as expected imp/plan doing well, likely home 2-3 days if continues current course. Imdur for BIMA spasm prophylaxisc1 month, DAPT for 3 months (if no bleeding issues) Objective: Vital Signs Temp Pulse Resp BP Pulse Ox 36.9 C 83 27 H 142/93 H 92 05/03/17 17:00 05/03/17 17:00 05/03/17 17:00 05/03/17 17:00 05/03/17 17:00 Laboratory Results 05/03/17 05:45 05/03/17 14:25 05/02/17 05/03/17 05/04/17 05:59 05:59 05:59 Intake Total 2120 1889 1515 Output Total 400 2345 1105 Balance 1720 -456 410 PT 13.2 SEC (12.0-15.0) 04/30/17 13:00 INR 1.01 (0.83-1.16) 04/30/17 13:00 ICD10 Worksheet Patient Problems: Problems Problem Status Onset Acute blood loss anemia Acute Coronary artery disease Acute Hyperlipidemia Acute Hypertension Acute S/P CABG x 4 Acute ~05/02/17
[2017-05-03] MEDS ORDERED: POTASSIUM CL 20 MEQ TAB PO ONE (18:00)
[2017-05-03] MEDS: METOPROLOL TARTRATE 25 MG TAB PO SCH (21:22)
[2017-05-04] MEDS: OXYCODONE/APAP 5/325 TAB PO PRN ×2 (01:59→05:53)
[2017-05-04] MEDS: LEVOTHYROXINE 200 MCG TAB PO SCH (05:53)
[2017-05-04 06:23] LABS: % IMMATURE GRANULYOCYTES 0.3 % (0.0-1.1); ABSOLUTE IMMATURE GRANULOCYTES 0.05 10^3/uL (0.00-0.10); ADD DIFF? NO; ADD MORPH? NO; ADD SCAN? NO; ATYPICAL LYMPHOCYTE FLAG 0 (0-99); FRAGMENT RBC FLAG 0 (0-99); HEMATOCRIT 37.9 % (40.0-51.0); HEMOGLOBIN 12.1 g/dL (13.7-17.5); LEFT SHIFT FLG 20 (0-99); LIPEMIA HEMOLYSIS FLAG 80 (0-99); MEAN CELL HEMOGLOBIN 24.9 pg (27.9-34.1); MEAN CELL HEMOGLOBIN CONCENTR. 31.9 g/dL (32.4-36.7); MEAN CELL VOLUME 78.1 fL (81.5-99.8); MEAN PLATELET VOLUME 10.3 fL (8.7-11.7); PLATELET CLUMPS FLAG 10 (0-99); PLATELET COUNT 178 10^3/uL (150-400); RED BLOOD CELL COUNT 4.85 10^6/uL (4.40-6.38); RED CELL DISTRIBUTION WIDTH 15.6 % (11.5-15.2)
[2017-05-04 06:34] LABS: ANION GAP 8 mEq/L (8-16); CALCIUM 8.7 mg/dL (8.5-10.4); CARBON DIOXIDE 25 mEq/l (22-31); CHLORIDE 103 mEq/L (97-110); GLOMERULAR FILTRATION RATE > 60; GLUCOSE 124 mg/dL (70-100); POTASSIUM 4.7 mEq/L (3.5-5.2); SODIUM 136 mEq/L (134-144)
--- NOTE | 2017-05-04 08:21 | SOAPPROG ---
SOAP Progress Note Assessment/Plan: Assessment: POD#2 CABG x 4 (MAJOR-LAD, DANIA-PDA, SV sequentially RI-trifurcating OM) Sx severe CAD w preserved LV systolic fx - s/p CABG w bilateral mammaries. Stable early postop course. No vasoactive support, backup pacing, tachycardia, or significant volume overload. Tubes out. Secondary prevention with baby ASA, statin and BB uptitrated as tolerated. Antispasm prophylaxis of mammary arteries with CCB x 1 mo. Adjunctive antiplatelet prophylaxis with Plavix x 3 mo. Acute expected blood loss anemia - Stable. No blood products transfused. No evidence active bleeding. VTE prophylaxis with DAPT. Prediabetes - Preop A1c of 6.3%. Postop hyperglycemia managed with low dose insulin gtt. Transition to SSI as per protocol. Minimal correctional needs. Likely can discontinue monitoring by tomorrow. ANYA on CPAP - Stable. Home device in use. Plan: Cont Norvasc 2.5 mg daily. Cont Metoprolol 12.5 mg BID. Cont daily DAPT. Lasix 40 mg po today. Inc activity and pulm toilet. Wean O2. Dispo - Anticipate home tomorrow afternoon or . 05/04/17 08:18 Subjective: Feels well. Tolerating light activity without difficulty. Satisfactory analgesia. Looking forward to a shower. Hopeful for home tomorrow. Objective: Vital Signs Temp Pulse Resp BP Pulse Ox 36.5 C 76 24 H 136/77 H 96 05/04/17 04:00 05/04/17 04:00 05/04/17 04:00 05/04/17 04:00 05/04/17 04:00 Laboratory Results 05/04/17 06:00 05/04/17 06:00 05/03/17 05/04/17 05/05/17 05:59 05:59 05:59 Intake Total 4709 2014 Output Total 1313 2305 Balance -456 -290 PT 13.2 SEC (12.0-15.0) 04/30/17 13:00 INR 1.01 (0.83-1.16) 04/30/17 13:00 Stable HR and rhythm. Sufficient BP to start metoprolol last noc. Minimal suppl O2 req. Balanced I/Os. +3 kg overall. Labs ok. Physical Exam - Physical Exam General Appearance: alert, no apparent distress Respiratory: lungs clear Cardiac/Chest: regular rate, rhythm, friction rub, other (Sternum grossly stable. Sternotomy CDI. Vwires intact.) Abdomen: non-tender, soft Skin: warm/dry Extremities: swelling (trace), other (LLE venotomy CDI) ICD10 Worksheet Patient Problems: Problems Problem Status Onset Acute blood loss anemia Acute Coronary artery disease Acute Hyperlipidemia Acute Hypertension Acute S/P CABG x 4 Acute ~05/02/17
[2017-05-04] MEDS: INSULIN LISPRO 100 UNIT/ML SC SCH ×3 (08:39→21:54)
[2017-05-04] MEDS: CLOPIDOGREL BISULFATE 75 MG TAB PO SCH (08:57)
[2017-05-04] MEDS: ASPIRIN EC 81 MG TAB PO SCH (08:57)
[2017-05-04] MEDS: METOPROLOL TARTRATE 25 MG TAB PO SCH ×2 (08:59→20:20)
[2017-05-04] MEDS ORDERED: POTASSIUM CL 10 MEQ TAB PO ONE (09:00)
[2017-05-04] MEDS ORDERED: FUROSEMIDE 40 MG TAB PO ONE (09:00)
[2017-05-04] MEDS: MULTIVITAMINS 1 EACH TAB PO SCH (09:05)
[2017-05-04] MEDS: SENNOSIDES/DOCUSATE SODIUM TAB PO SCH ×2 (09:05→20:19)
[2017-05-04] MEDS: PANTOPRAZOLE SODIUM 40 MG TAB PO SCH (09:05)
[2017-05-04] MEDS: ALLOPURINOL 300 MG TAB PO SCH (10:40)
[2017-05-04] MEDS: oxyCODONE IR 5 MG TAB PO PRN ×5 (10:46→22:15)
[2017-05-04] MEDS: ACETAMINOPHEN 325 MG TAB PO PRN ×2 (15:11→20:19)
[2017-05-05] MEDS: oxyCODONE IR 5 MG TAB PO PRN ×4 (02:26→13:53)
[2017-05-05] MEDS: ACETAMINOPHEN 325 MG TAB PO PRN ×2 (02:26→09:55)
[2017-05-05] MEDS: LEVOTHYROXINE 200 MCG TAB PO SCH (05:58)
[2017-05-05 06:21] LABS: POTASSIUM 4.2 mEq/L (3.5-5.2)
[2017-05-05] MEDS: INSULIN LISPRO 100 UNIT/ML SC SCH (07:35)
[2017-05-05] MEDS: SENNOSIDES/DOCUSATE SODIUM TAB PO SCH (07:57)
[2017-05-05] MEDS: ASPIRIN EC 81 MG TAB PO SCH (07:57)
[2017-05-05] MEDS: ALLOPURINOL 300 MG TAB PO SCH (07:58)
[2017-05-05] MEDS: MULTIVITAMINS 1 EACH TAB PO SCH (07:58)
[2017-05-05] MEDS: CLOPIDOGREL BISULFATE 75 MG TAB PO SCH (07:58)
[2017-05-05] MEDS: PANTOPRAZOLE SODIUM 40 MG TAB PO SCH (07:58)
[2017-05-05] MEDS: METOPROLOL TARTRATE 25 MG TAB PO SCH (07:58)
[2017-05-05 08:27] VITALS: TEMP 98.2
[2017-05-05] MEDS ORDERED: POTASSIUM CL 10 MEQ TAB PO ONE (08:28)
--- NOTE | 2017-05-05 08:33 | SOAPPROG ---
SOAP Progress Note Assessment/Plan: Assessment: POD#3 CABG x 4 (MAJOR-LAD, DANIA-PDA, SV sequentially RI-trifurcating OM) Sx severe CAD w preserved LV systolic fx - s/p CABG w bilateral mammaries. Stable early postop course. No vasoactive support, backup pacing, tachycardia, or significant volume overload. Tubes out. Secondary prevention with baby ASA, statin, and BB. Antispasm prophylaxis of mammary arteries with CCB x 1 mo. Adjunctive antiplatelet prophylaxis with Plavix x 3 mo. Acute expected blood loss anemia - Stable. No blood products transfused. No evidence active bleeding. VTE prophylaxis with DAPT. Prediabetes - Preop A1c of 6.3%. Postop hyperglycemia managed with low dose insulin gtt. Transition to SSI as per protocol. No correctional needs last 24hrs. Monitoring suspended. ANYA on CPAP - Stable. Home device in use. Plan: Cont Norvasc 2.5 mg daily. Cont Metoprolol 25 mg BID. Cont daily DAPT. Lasix 20 mg po today. Trial mucomyst neb and flonase. Inc activity and pulm toilet. Wean O2. Dispo - Home this afternoon vs tomorrow. 05/04/17 08:18 Subjective: Tired. Nose stuffy. Working a bit harder to breathe. Panic attack last noc on CPAP, resolving with postural change and temp adjustment. Believes home environment would be beneficial and hopeful for discharge later today. Objective: Vital Signs Temp Pulse Resp BP Pulse Ox 36.8 C 75 20 137/68 H 95 05/05/17 07:40 05/05/17 07:58 05/05/17 07:40 05/05/17 07:58 05/05/17 07:40 Laboratory Results 05/04/17 06:00 05/05/17 06:00 05/04/17 05/05/17 05/06/17 05:59 05:59 05:59 Intake Total 2014 1100 Output Total 2305 1650 Balance -290 -550 PT 13.2 SEC (12.0-15.0) 04/30/17 13:00 INR 1.01 (0.83-1.16) 04/30/17 13:00 HR and rhythm stable. Metop inc to 25 mg last noc for upward SBP creep. Adequate diuresis on oral lasix. Now 1 kg above baseline wt. CXR-> hypoventilation, diskoid atelectasis of rt base Physical Exam - Physical Exam General Appearance: alert, no apparent distress EENT: other (audible nasal congestion) Respiratory: crackles (bases) Cardiac/Chest: regular rate, rhythm, other (Sternum grossly stable. Sternotomy and CT sites CDI. Vwires removed without difficulty) Abdomen: non-tender, soft Skin: warm/dry Extremities: swelling (trace), other (LLE venotomy CDI) ICD10 Worksheet Patient Problems: Problems Problem Status Onset Acute blood loss anemia Acute Coronary artery disease Acute Hyperlipidemia Acute Hypertension Acute S/P CABG x 4 Acute ~05/02/17
[2017-05-05] MEDS ORDERED: FUROSEMIDE 20 MG TAB PO ONE (09:00)
[2017-05-05] MEDS ORDERED: ACETYLCYSTEINE 10% 30 ML VIAL IH SCH (09:15)
[2017-05-05] MEDS ORDERED: FLUTICASONE NASAL 120 SPRAYS/16 GM MDI EACHNARE SCH (09:15)
[2017-05-05] MEDS ORDERED: ALBUTEROL 3 ML DEYVIAL IH PRN (09:30)
[2017-05-05] MEDS ORDERED: ALBUTEROL 3 ML DEYVIAL ONE (10:10)
[2017-05-05 13:00] VITALS: BP 136/82
[2017-05-05 13:03] VITALS: PULSE 94; RESP 22; O2SAT 87
--- NOTE | 2017-05-05 13:38 | PDDCSUM ---
Discharge Summary Discharge Summary: DATE OF ADMISSION: 04/30/17 DATE OF DISCHARGE: 05/05/17 DISPOSITION: Home, self-care PRINCIPAL ADMISSION DIAGNOSIS: Crescendo angina PRINCIPAL DISCHARGE DIAGNOSES: 1. Severe multivessel coronary artery disease 2. Left ventricular diastolic dysfunction, grade 1 3. Status post coronary artery bypass grafting x 4 4. Acute expected blood loss anemia HISTORY OF PRESENT ILLNESS: 61 yo male with multiple cardiac risk factors, increasing frequency of chest pressure, and worsening exertional dyspnea, admitted for elective left heart catheterization after an abnormal stress test. PERTINENT PAST MEDICAL HISTORY: ANYA on CPAP, HTN, dyslipidemia, prediabetes, hypothyroidism, gout MEDICATIONS ON ADMISSION: ASA 81 mg daily, MVI once daily, Lisinopril 10 mg daily, Nadolol 80 mg daily, Allopurinol 300 mg daily, Levothyroxine 200 mcg daily, herbal supplement once daily ALLERGIES/SENSITIVITIES: NKDA CONSULTANTS: CV surgery (Luisito), Pulmonology/critical care (Andrés) PROCEDURES/IMAGIN/7 (Hi): Left heart catheterization with selective coronary angiography and left ventriculogram. Access via rt radial artery. Findings: Codominant coronary circulation, severe multivessel CAD, LVEF 60%. 05/01 (Lorenza): Transthoracic echocardiogram: Nl chamber size. Nl valvular structure and function. Nl BiV systolic fx. LVEF 60-65%. Mild LVDD. 05/01 Carotid US: No hemodynamically significant stenosis, antegrade vertebral flow. 05/03 (Luisito): Coronary artery bypass grafting x 4 (MAJOR-LAD, DANIA-distal RCA, SV sequentially to OM1 and PLC). Takedown bilateral internal mammary arteries. Endoscopic vein harvest left leg. ABBREVIATED HOSPITAL COURSE BY ACTIVE PROBLEM LIST: 1. Sx severe CAD w preserved LV systolic fx - s/p CABG w bilateral mammaries. Uneventful early postop course. Secondary prevention with baby ASA, statin, and BB. Antispasm prophylaxis of mammary arteries with CCB x 1 mo. Adjunctive antiplatelet prophylaxis with Plavix x 3 mo. 2. Acute expected blood loss anemia - Stable. No blood products transfused. VTE prophylaxis with DAPT. 3. Prediabetes - Preop A1c of 6.3%. Postop hyperglycemia managed with low dose insulin gtt, transitioning to SSI as per protocol. Correctional needs resolved within 24hrs and monitoring suspended. 4. ANYA on CPAP - Stable. Home device in use. DISCHARGE CLINICAL INFORMATION: Sternum grossly stable. Sternotomy and LLE venotomy CDI, sutured. HR 70s-80s. SBP 130s. SpO2 93% RA rest, 87-88% RA activity - correcting to > 90 % on 2 Lpm O2. Wt 1 kg above admission at 94.3 kilos. Hgb 12.1, HCT 37.9, Plt 178, Na 136, K 4.2, BUN 23, Cr 1.0 DISCHARGE MEDICATIONS: As on admission with the following adjustments: Hold Lisinopril. Hold Nadolol (Corgard). NEW prescriptions: 1. Metoprolol 25 mg BID. 2. Norvasc 2.5 mg daily x 1 month. 3. Plavix 75 mg daily x 3 months. 4. Lipitor 20 mg daily or as directed. 5. Nitrostat 0.4 mg SL q 5 min prn angina. 6. Oxygen @ 2 Lpm with activity or as directed by SpO2. 7. Flonase nasal spray 1 puff each nares daily prn congestion. 8. Oxycodone IR 5 mg one-half to 2 tabs q 4hrs prn incisional discomfort. FOLLOW UP APPOINTMENTS: 1. CV surgery: with Dr Infante at [facility] on 05/13 at 0930. 2. Cardiology: with Dr Do at [facility] within 4-6 weeks. Appointment to be established during surgical visit. FOLLOW UP TESTING: CXR prior to surgical appointment.
--- NOTE | 2017-05-20 05:46 | GOP ---
[f rep st] OPERATIVE REPORT DATE OF OPERATION: 05/02/2017 SURGEON: Mele Jorge MD MED SURG NURSE: MATTHEW Jc PREOPERATIVE DIAGNOSIS: Coronary artery disease. POSTOPERATIVE DIAGNOSIS: Coronary artery disease. PROCEDURE PERFORMED: Coronary artery bypass grafting x4 with left internal mammary artery to left a nterior descending, right internal mammary artery to the distal right coronary artery (acute margina l), and a double sequential aortocoronary reverse saphenous vein to the obtuse marginal 1 and then t o the posterolateral branch off the circumflex, epiaortic ultrasonography, endoscopic vein harvest. FINDINGS: The patient was found to have excellent mammary and saphenous vein conduits and satisfact ory targets. His right coronary artery was diminutive in the AV groove distally, but he had a very large acute marginal that supplied the inferior wall of the LV distally. The patient, on epiaortic ultrasonography, had no protruding atheromata, a normal caliber aorta, and normal wall thickness of the aorta. DESCRIPTION OF PROCEDURE: Under general endotracheal anesthesia, the patient was prepped and draped in the supine position, and a standard median sternotomy was accomplished. Simultaneously, a vein w as harvested endoscopically from the right lower extremity, primarily in the thigh, with an endoscop ic system, and small branches controlled with 4-0 silk ligatures or small hemoclips. The left and ri ght internal mammary arteries were harvested with electrocautery and small hemoclips, and the mammar y arteries were prepared for grafting after systemically heparinizing the patient. A pericardial cradle was fashioned. Epiaortic sonography was performed, and then an ascending aorta cannula was placed. A 2-stage venous cannula was inserted, and cardiopulmonary bypass commenced. The aorta was crossclamped. Cardioplegia solution was infused antegrade and then intermittently ant egrade and through vein grafts as they were completed. The reverse saphenous vein was then anastomosed end-to-side to the posterolateral branch off the cir cumflex with running 8-0 Prolene. Next, this same segment of saphenous vein was anastomosed side-to -side to the obtuse marginal 1 with running 8-0 Prolene. The left internal mammary artery was anast omosed end-to-side to the left anterior descending with running 8-0 Prolene, and the mammary pedicle was pexed to the epicardium with 5-0 Prolene. Next, the right internal mammary artery was anastomo sed end-to-side to the right coronary artery distally which actually represented a large acute sobia nal, and this was done with running 8-0 Prolene and the mammary pedicle pexed to the epicardium. A single 4.8 mm punch aortotomy was fashioned, and a proximal anastomosis to the vein graft performed with a running 6-0 Prolene end-to-side. Aortic crossclamp was removed. Inspection was made for hem ostasis, and the patient was weaned from cardiopulmonary bypass. Heparin was reversed with protamin e, and the patient decannulated. We closed the pericardium loosely over the grafts with running 3-0 PDS. Chest tubes were placed in the left and right chest and mediastinum. Temporary pacing wires were affixed, and then the sternum was closed with stainless steel wires and the presternal fascia c losed with running PDS and the skin closed with Monocryl. /[id number]/MODL
== END 2017-05-05 14:13 | disposition home or self-care (01) | DRG 233 ==
LOC: FCATH 12:16 → F2W 16:09 → F2N 05-02 06:11 → F2W 05-02 06:11 → F2N 05-02 07:48 → F2W 05-03 11:33
PROVIDERS: ADMIT Thoracic Surgery (Cardiothoracic Vascular Surgery); ATTEND Thoracic Surgery (Cardiothoracic Vascular Surgery)
PROC: 4A023N7 Measurement of Cardiac Sampling and Pressure, Left Heart, Percutaneous Approach (ICD-10-PCS; 2017-04-30)
PROC: B2151ZZ Fluoroscopy of Left Heart using Low Osmolar Contrast (ICD-10-PCS; 2017-04-30)
PROC: B2111ZZ Fluoroscopy of Multiple Coronary Arteries using Low Osmolar Contrast (ICD-10-PCS; 2017-04-30)
PROC: 02100A8 Bypass Coronary Artery, One Artery from Right Internal Mammary with Autologous Arterial Tissue, Open Approach (ICD-10-PCS; principal; 2017-05-02 07:15)
PROC: 02100A9 Bypass Coronary Artery, One Artery from Left Internal Mammary with Autologous Arterial Tissue, Open Approach (ICD-10-PCS; principal; 2017-05-02 07:15)
PROC: 5A1221Z Performance of Cardiac Output, Continuous (ICD-10-PCS; principal; 2017-05-02 07:15)
PROC: 021109W Bypass Coronary Artery, Two Arteries from Aorta with Autologous Venous Tissue, Open Approach (ICD-10-PCS; principal; 2017-05-02 07:15)
PROC: 05HM33Z Insertion of Infusion Device into Right Internal Jugular Vein, Percutaneous Approach (ICD-10-PCS; 2017-05-02 07:15)
PROC: 06BP4ZZ Excision of Right Saphenous Vein, Percutaneous Endoscopic Approach (ICD-10-PCS; 2017-05-02 07:15)
DX: I25.110 Atherosclerotic heart disease of native coronary artery with unstable angina pectoris (principal); J95.1 Acute pulmonary insufficiency following thoracic surgery; I10 Essential (primary) hypertension; D62 Acute posthemorrhagic anemia; E78.5 Hyperlipidemia, unspecified; E03.9 Hypothyroidism, unspecified; G47.33 Obstructive sleep apnea (adult) (pediatric); M10.9 Gout, unspecified; E11.9 Type 2 diabetes mellitus without complications; Z85.46 Personal history of malignant neoplasm of prostate; Z82.49 Family history of ischemic heart disease and other diseases of the circulatory system
CPT/HCPCS: 82947-QW; 97116-GP; 97161-GP; 97165-GO; 97530-GO; 97535-GO; C1769; J0153; J0282; J0690; J1100; J1200; J1265; J1644; J1815; J1940; J2001; J2150; J2250; J2260; J2370; J2405; J2440; J2704; J2720; J2780; J2930; J3010; J3370; J7060; P9041; Q9967

== ENCOUNTER → 2017-05-12 | Outpatient (CLI) | payer BC | LOC: FIMAGING 08:10 | PROVIDERS: ATTEND Physician Assistant Surgical | DX: J90 Pleural effusion, not elsewhere classified (principal); J98.11 Atelectasis; Z95.1 Presence of aortocoronary bypass graft ==